=== PATIENT | male | born 1955 | race Caucasian/White ===

== ENCOUNTER → 2020-02-25 | Outpatient (CLI) | payer MEDICARE ==
--- NOTE | 2020-02-26 14:58 | US ---
EXAM DESCRIPTION: Testicular: Ultrasound. CLINICAL HISTORY: 64 years Male TESTICULAR MASS. Right testicular mass. Trauma 2012. COMPARISON: None. TECHNIQUE: Transcutaneous scanning ; jarrett-scale and Doppler modes. FINDINGS: Dimensions of the right testicle are 3.9 x 3.8 x 2.1 cm, with focal area of heterogeneous small multicystic tissue slightly vascular measuring 2.9 x 1.4 x 3.6 cm. The remainder of the testicle demonstrates normal echogenicity and normal color Doppler flow. Epididymal head measures 3 mm, and is abutting the region of abnormal echogenicity in the testicle with normal echogenicity and normal color Doppler flow. No scrotal wall thickening. Large Hydrocele, 11.5 x 6.5 x 7.2 cm. Dimensions of the left testicle are 4.6 x 3.2 x 2.7 cm, with focal area of heterogeneous small multicystic tissue, slightly vascular, measuring 2.4 x 2.1 x 0.9 cm. Otherwise normal echogenicity and normal color Doppler flow. Epididymal head measures 16 x 10 x 4 mm, with 14 x 12 and 12 x 11 mm cysts. Otherwise normal echogenicity and normal color Doppler flow. No scrotal wall thickening. No significant Hydrocele. IMPRESSION: 1. Bilateral testicles with focal abnormal multicystic type echogenicity which is vascular. Remainder of both testicles with normal echogenicity and vascularity. Large cystic hydrocele 11.5 cm in the right scrotum. 2. Small epididymis on the right. Multiple cysts in the left epididymis. Electronically signed by: Kb Kaur MD 02/26/2020 2:56 PM [employer]
== END ==
LOC: US 12:51
PROVIDERS: ATTEND Emergency Medicine
DX: N50.89 Other specified disorders of the male genital organs (principal); N43.3 Hydrocele, unspecified; N50.3 Cyst of epididymis